=== PATIENT | female | born 1990 | race Caucasian/White ===

== ENCOUNTER 2017-02-04 17:46 | Emergency (ER) | payer MEDICAID ==
[~2017-02-04] VITALS: Ht 160 cm; Wt 71.4 kg
[2017-02-04 18:07] VITALS: Ht 160 cm; Wt 71.4 kg
[2017-02-04] MEDS ORDERED: ONDANSETRON (ODT) 4 MG TAB ODT STA (19:38)
[2017-02-04] MEDS ORDERED: DICYCLOMINE 10 MG CAP PO ONE (20:00)
[2017-02-04 20:06] LABS: BASOPHIL # 0.1 10^3/ul (0.0-0.1); BASOPHILS % 0.4 % (0.0-2.0); EOSINOPHILS # 0.1 10^3/ul (0.0-0.5); EOSINOPHILS % 0.7 % (0.0-7.0); HEMATOCRIT 39.8 % (37.0-47.0); HEMOGLOBIN 13.2 g/dl (12.0-16.0); LYMPHOCYTES # 2.7 10^3/ul (0.8-2.9); LYMPHOCYTES % 19.9 % (15.0-51.0); MEAN CORPUSCULAR HEMOGLOBIN 27.4 pg (29.0-33.0); MEAN CORPUSCULAR HGB CONC 33.2 g/dl (32.0-37.0); MEAN CORPUSCULAR VOLUME 82.7 fl (82.0-101.0); MEAN PLATELET VOLUME 11.3 fl (7.4-10.4); MONOCYTE # 1.1 10^3/ul (0.3-0.9); MONOCYTES % 8.3 % (0.0-11.0); NEUTROPHIL # 9.6 10^3/ul (1.6-7.5); NEUTROPHILS % 70.3 % (39.0-77.0); PLATELET COUNT 266 10^3/UL (140-415); RED BLOOD COUNT 4.81 10^6/ul (4.20-5.40); WHITE BLOOD COUNT 13.6 10^3/ul (4.8-10.8)
[2017-02-04 20:20] LABS: ALBUMIN 4.6 g/dl (3.3-4.9); ALBUMIN/GLOBULIN RATIO 1.15; BILIRUBIN,INDIRECT 0.1 mg/dl (0-1.1); BILIRUBIN,TOTAL 0.1 mg/dl (0.2-1.3); CALCIUM 9.2 mg/dl (8.4-10.2); CREATININE 0.51 mg/dl (0.44-1.00); POTASSIUM 3.8 mmol/L (3.5-5.1); TOTAL PROTEIN 8.6 g/dl (6.1-8.1)
[2017-02-04 20:33] LABS: ADD UMIC YES; UR ASCORBIC ACID NEGATIVE (NEGATIVE); UR BACTERIA FEW /HPF (NONE SEEN); UR BILIRUBIN (Dip) NEGATIVE (NEGATIVE); UR BLOOD (Dip) NEGATIVE (NEGATIVE); UR CLARITY SLIGHTLY CLOUDY (CLEAR); UR COLOR AMBER (YELLOW); UR GLUCOSE (Dip) NEGATIVE (NEGATIVE); UR KETONES (Dip) TRACE mg/dL (NEGATIVE); UR LEUKOCYTE ESTERASE (Dip) 1+ Leu/ul (NEGATIVE); UR MUCUS FEW /HPF (NONE SEEN); UR NITRITE (Dip) NEGATIVE (NEGATIVE); UR RBC 2 /HPF (0-5); UR SPECIFIC GRAVITY (Dip) 1.027 (1.003-1.030); UR SQUAMOUS EPITHELIAL CELL MODERATE /HPF (FEW); UR TOTAL PROTEIN (Dip) 1+ mg/dl (NEGATIVE); UR UROBILINOGEN (Dip) NEGATIVE (NEGATIVE)
--- NOTE | 2017-02-04 21:49 | RADRPT ---
PROCEDURE: US Abdomen Right Upper Quadrant. CLINICAL INDICATION: Abdominal pain TECHNIQUE: Multiple real-time longitudinal and transverse images were acquired of the patient's [facility] upper quadrant abdomen utilizing a curved array transducer. COMPARISON: None FINDINGS: Liver: The liver is enlarged with the sagittal diameter right lobe measuring 19.4 cm. The liver is d iffusely echogenic with no discrete focal lesion evident. There is antegrade flow of the main portal vein. Gallbladder: Appears unremarkable and no stones are identified. There is no pericholecystic fluid. Bile ducts: There is no significant intra or extrahepatic bile duct dilatation. No choledocholiths a re seen within the visualized portions. The common bile duct measures 2.8 mm in cross diameter. Pancreas: The visualized head and body of the pancreas appear unremarkable. Right adrenal : No mass is evident. Right kidney: Normal in echotexture andl in size. The right kidney measures 11.1 cm in length. No ma ss, pathological calcification, or hydronephrosis is evident. Peritoneum: There is no free intraperitoneal fluid IMPRESSION: 1. Hepatomegaly with diffusely increased echotexture which likely represents fatty infiltration but no focal lesion evident. Antegrade flow is seen in the main portal vein. 2. Normal appearing gallbladder without cholelithiasis or bile duct dilatation. 3. The visualized pancreas appears unremarkable. 4. The right kidney appears normal. Physician William Date Time Electronically viewed and signed by Physician William on 02/04/2017 21:49 /
[2017-02-04] MEDS ORDERED: DICY10CA60 PO (22:05)
[2017-02-04] MEDS ORDERED: ONDA4TAB14 PO (22:05)
[2017-02-04] MEDS ORDERED: CEPH-443 PO (22:18)
--- NOTE | 2017-02-05 00:02 | ERD ---
ER Documentation Chief Complaint Chief Complaint ap w/nausea & diarrhea x4 days HPI 26-year-old female patient with no significant past medical history presents to the ED complaining of abdominal pain that started intermittently for the past 2 days with some nausea but denies any vomiting. Reports that her last menstruation was on January 16, 2017. States that her abdominal pain is predominantly in the right upper quadrant region and she has had 3 episodes of nonmucoid nonbloody diarrhea. Denies any chest pain, shortness of breath, fever , chills, neck stiffness. Patient reports that the pain is worse with eating food. ROS All systems reviewed and are negative except as per history of present illness. Medications Home Meds Active Scripts Cephalexin* (Keflex*) 500 Mg Capsule, 500 MG PO QID for 7 Days, CAP Prov:MIGUEL TENA PA-C 02/04/17 Allergies Allergies: Coded Allergies: No Known Allergy (Unverified , 11/28/15) PMhx/Soc Medical and Surgical Hx: pt denies Medical Hx, pt denies Surgical Hx Physical Exam Vitals Vital Signs Date Time Temp Pulse Resp B/P Pulse Ox O2 Delivery O2 Flow Rate FiO2 02/04/17 18:07 98.0 101 20 119/76 98 Physical Exam Const: [id number], well-nourished. In no acute distress. Head: Atraumatic, normocephalic Eyes: Normal Conjunctiva without injection. No purulent discharge. ENT: Normal external ear, nose. Moist oropharynx without tonsillar exudates. Non -erythematous pharynx. Uvula midline. No drooling. No trismus. Neck: No cervical midline tenderness. Full range of motion. No meningismus. No cervical lymphadenopathy. No JVD. Resp: Clear to auscultation bilaterally. No wheezing, rhonchi, rales, or crackles. No accessory muscle use. No retractions. Cardio: Regular rate and rhythm. No murmurs, rubs or gallops. Abd: Soft, right upper quadrant tenderness, non distended. Normal bowel sounds. No palpable masses. No rebound tenderness. No guarding. Negative McBurney' s point. Negative psoas sign. Negative obturator sign. Skin: No petechiae or rashes Back: No midline tenderness. No CVA tenderness. Ext: No cyanosis, or edema. Neur: Awake and alert. Normal gait. Normal coordination. Psych: Normal Mood and Affect Result Diagram: 02/04/17195002/04/171950 Results 24 hrs Laboratory Tests Test 02/04/17 19:35 02/04/17 19:51 Urine Color HEIDI Urine Clarity SLIGHTLY CLOUDY Urine pH 6.0 Urine Specific [place] 1.027 Urine Ketones TRACEmg/dL Urine Nitrite NEGATIVEmg/dL Urine Bilirubin NEGATIVEmg/dL Urine Urobilinogen NEGATIVEmg/dL Urine Leukocyte Esterase 1+Ji/ul Urine Microscopic RBC 2/HPF Urine Microscopic WBC 12/HPF Urine Squamous Epithelial Cells MODERATE/HPF Urine Bacteria FEW/HPF Urine Mucus FEW/HPF Urine Hemoglobin NEGATIVEmg/dL Urine Glucose NEGATIVEmg/dL Urine Total Protein 1+mg/dl White Blood Count 13.610^3/ul Red Blood Count 4.8110^6/ul Hemoglobin 13.2g/dl Hematocrit 39.8% Mean Corpuscular Volume 82.7fl Mean Corpuscular Hemoglobin 27.4pg Mean Corpuscular Hemoglobin Concent 33.2g/dl Red Cell Distribution Width 13.0% Platelet Count 17810^3/UL Mean Platelet Volume 11.3fl Neutrophils % 70.3% Lymphocytes % 19.9% Monocytes % 8.3% Eosinophils % 0.7% Basophils % 0.4% Nucleated Red Blood Cells % 0.0/100WBC Neutrophils # 9.610^3/ul Lymphocytes # 2.710^3/ul Monocytes # 1.110^3/ul Eosinophils # 0.110^3/ul Basophils # 0.110^3/ul Nucleated Red Blood Cells # 0.010^3/ul Sodium Level 139mmol/L Potassium Level 3.8mmol/L Chloride Level 101mmol/L Carbon Dioxide Level 24mmol/L Anion Gap 18 Blood Urea Nitrogen 9mg/dl Creatinine 0.51mg/dl Glucose Level 105mg/dl Calcium Level 9.2mg/dl Total Bilirubin 0.1mg/dl Direct Bilirubin 0.00mg/dl Indirect Bilirubin 0.1mg/dl Aspartate Amino Transf (AST/SGOT) 69IU/L Alanine Aminotransferase (ALT/SGPT) 149IU/L Alkaline Phosphatase 154IU/L Total Protein 8.6g/dl Albumin 4.6g/dl Globulin 4.00g/dl Albumin/Globulin Ratio 1.15 Lipase 54U/L Current Medications Medications (Trade) Dose Ordered Sig/Ryan Route PRN Reason Start Time Stop Time Status Last Admin Dose Admin Dicyclomine HCl (Bentyl) 10 mg ONCE ONCE PO 02/04/17 20:00 02/04/17 20:01 DC 02/04/17 20:07 Ondansetron HCl (Zofran Odt) 4 mg ONCE STAT ODT 02/04/17 19:38 02/04/17 19:41 DC 02/04/17 20:07 Procedures/MDM 26-year-old female patient with no significant past medical history presents to the ED complaining of right upper quadrant abdominal pain and worse after eating and also has diarrhea. Patient is afebrile nontoxic appearing. Patient has normal vital signs. Patient was further worked up with CBC, CMP, lipase, UA , gallbladder ultrasound. Patient's pain and symptoms have improved after treatment with Bentyl, Zofran. CBC: No leukocytosis. No e/o of systemic infection. No e/o anemia. CMP: No e/o severe acidosis, alkalosis, renal failure, diabetic ketoacidosis, liver disease Lipase within normal limits. Urine: 1+ leukocyte esterase, no nitrites, no hematuria. Urine : Negative PROCEDURE: US Abdomen Right Upper Quadrant. CLINICAL INDICATION: Abdominal pain TECHNIQUE: Multiple real-time longitudinal and transverse images were acquired of the patient's right upper quadrant abdomen utilizing a curved array transducer. COMPARISON: None FINDINGS: Liver: The liver is enlarged with the sagittal diameter right lobe measuring 19.4 cm. The liver is diffusely echogenic with no discrete focal lesion evident. There is antegrade flow of the main portal vein. Gallbladder: Appears unremarkable and no stones are identified. There is no pericholecystic fluid. Bile ducts: There is no significant intra or extrahepatic bile duct dilatation. No choledocholiths are seen within the visualized portions. The common bile duct measures 2.8 mm in cross diameter. Pancreas: The visualized head and body of the pancreas appear unremarkable. Right adrenal : No mass is evident. Right kidney: Normal in echotexture andl in size. The right kidney measures 11.1 cm in length. No mass, pathological calcification, or hydronephrosis is evident. Peritoneum: There is no free intraperitoneal fluid IMPRESSION: 1. Hepatomegaly with diffusely increased echotexture which likely represents fatty infiltration but no focal lesion evident. Antegrade flow is seen in the main portal vein. 2. Normal appearing gallbladder without cholelithiasis or bile duct dilatation. 3. The visualized pancreas appears unremarkable. 4. The right kidney appears normal. Patient is noted to have a urinary tract infection. Patient also has a fatty liver and she was treated on healthy eating. Patient is appropriate for outpatient management. Low suspicion for ectopic , ovarian torsion, gastritis, GERD, peptic ulcer disease, cholecystitis, choledocholithiasis, cholangitis, pancreatitis, appendicitis, bowel obstruction, ileus, volvulus, nephrolithiasis, pyelonephritis, hepatitis, perforated viscus, diverticulitis, strangulated/incarcerated hernia, DKA, acute abdomen, mesenteric ischemia or other emergent conditions. 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 Healthy eating education provided to patient. Instructed patient to return to the ED sooner for any worsening symptoms. Patient's questions were answered. Patient understood and agreed with discharge plan. Patient discharged stable. Departure Diagnosis: Primary Impression: Flank pain Additional Impression: Right upper quadrant abdominal pain Condition: Stable Patient Instructions: Abdominal Pain, Non-Alcoholic Fatty Liver Disease (NAFLD) , Urinary Tract Infections in Women Referrals: COMMUNITY CLINICS YOU HAVE RECEIVED A MEDICAL SCREENING EXAM AND THE RESULTS INDICATE THAT YOU DO NOT HAVE A CONDITION THAT REQUIRES URGENT TREATMENT IN THE EMERGENCY DEPARTMENT. FURTHER EVALUATION AND TREATMENT OF YOUR CONDITION CAN WAIT UNTIL YOU ARE SEEN IN YOUR DOCTORS OFFICE WITHIN THE NEXT 1-2 DAYS. IT IS YOUR RESPONSIBILITY TO MAKE AN APPOINTMENT FOR FOLOW-UP CARE. IF YOU HAVE A PRIMARY DOCTOR --you should call your primary doctor and schedule an appointment IF YOU DO NOT HAVE A PRIMARY DOCTOR YOU CAN CALL OUR PHYSICIAN REFERRAL HOTLINE AT IF YOU CAN NOT AFFORD TO SEE A PHYSICIAN YOU CAN CHOSE FROM THE FOLLOWING [facility] CLINICS [facility] [address] [facility] [address] [facility]. [facility] [address] [facility] [address] [facility] [address] [facility]. [facility] [address] [facility]. [facility] YOU HAVE RECEIVED A MEDICAL SCREENING EXAM AND THE RESULTS INDICATE THAT YOU DO NOT HAVE A CONDITION THAT REQUIRES URGENT TREATMENT IN THE EMERGENCY DEPARTMENT. FURTHER EVALUATION AND TREATMENT OF YOUR CONDITION CAN WAIT UNTIL YOU ARE SEEN IN YOUR DOCTORS OFFICE WITHIN THE NEXT 1-2 DAYS. IT IS YOUR RESPONSIBILITY TO MAKE AN APPOINTMENT FOR FOLOW-UP CARE. IF YOU HAVE A PRIMARY DOCTOR --you should call your primary doctor and schedule and appointment IF YOU DO NOT HAVE A PRIMARY DOCTOR YOU CAN CALL OUR PHYSICIAN REFERRAL HOTLINE AT . IF YOU CAN NOT AFFORD TO SEE A PHYSICIAN YOU CAN CHOSE FROM THE FOLLOWING COUNTS INCLUDE 234 BEDS AT THE [facility] INSTITUTIONS: [facility] [address] [place] [address] [facility] [address] [place], [place] [id number] [place] [address] [address] [place] [address] [facility] URGENT CARE/SPECIALTIES Additional Instructions: Llame al doctor MAANA y juan alia RAHUL PARA DENTRO DE 2-3 MULLINS.Dgale a la secretaria que nosotros le instruimos hacer esta rahul.Avise o llame si vivar condicin se empeora antes de la rahul. Regresa aqui si peor o no mejor. MIGUEL TENA PA-C Feb 05, 2017 00:02
== END 2017-02-04 22:38 | disposition home or self-care (01) ==
LOC: FTE 17:46
DX: R10.11 Right upper quadrant pain (principal)
CPT/HCPCS: 76705; 80053; 81001; 83690; 85025; Z7502; Z7610

== ENCOUNTER 2018-10-21 20:12 | Emergency (ER) | payer MEDICAID ==
[~2018-10-21] VITALS: Ht 144.8 cm; Wt 72.7 kg
[~2018-10-21 20:12] MED LIST: CEPH-443 PO
[2018-10-21 20:17] VITALS: BP 119/61; PULSE 77; RESP 18; Ht 144.8 cm; Wt 72.7 kg
[2018-10-21] MEDS ORDERED: ACETAMINOPHEN 325 MG TAB PO ONE (20:30)
--- NOTE | 2018-10-22 00:06 | ERD ---
ER Documentation Chief Complaint Chief Complaint C/O LOWER ABDOMINAL AND PELVIC PAIN X4 DAYS HPI 28-year-old female presents emergency department complaining of intermittent pelvic pain for the past 5 days. She describes it as cramping sensation currently rated 6/10 severity. She is also had some vaginal bleeding. She denies any abdominal pain, fevers, chills, back pain, or other symptoms at this time. Her last menstrual cycle was reportedly September 11, 2018. No other symptoms reported at this time. ROS All systems reviewed and are negative except as per history of present illness. Medications Home Meds Active Scripts Cephalexin* (Keflex*) 500 Mg Capsule, 500 MG PO TID for 7 Days, CAP Prov:KRISETN KHAN PA-C 10/21/18 Cephalexin* (Keflex*) 500 Mg Capsule, 500 MG PO QID for 7 Days, CAP Prov:MIGUEL TENA PA-C 02/04/17 Allergies Allergies: Coded Allergies: No Known Allergy (Unverified , 11/28/15) PMhx/Soc Medical and Surgical Hx: pt denies Medical Hx, pt denies Surgical Hx Hx Alcohol Use: No Hx Substance Use: No Hx Tobacco Use: No Smoking Status: Never smoker FmHx Family History: No diabetes Physical Exam Vitals Vital Signs Date Temp Pulse Resp B/P (MAP) Pulse Ox O2 O2 Flow FiO2 Time Delivery Rate 10/21/18 98.0 23:03 10/21/18 98.6 77 18 119/61 99 20:17 (80) Physical Exam Const: No acute distress Head: Atraumatic Eyes: Normal Conjunctiva ENT: Normal External Ears, Nose and Mouth. Neck: Full range of motion. No meningismus. Resp: Clear to auscultation bilaterally Cardio: Regular rate and rhythm, no murmurs Abd: Soft, non tender, non distended. Normal bowel sounds. No rebound tenderness or guarding. No McBurney's point tenderness. Mild tenderness palpation of the suprapubic region bilaterally. Skin: No petechiae or rashes Back: No midline or flank tenderness Ext: No cyanosis, or edema Neur: Awake and alert Psych: Normal Mood and Affect Result Diagram: 10/21/18203610/21/182036 Results 24 hrs Laboratory Tests Test 10/21/18 20:37 8/6/19 20:47 10/21/18 21:47 White Blood Count 9.6 10^3/ul Red Blood Count 4.47 10^6/ul Hemoglobin 12.6 g/dl Hematocrit 38.4 % Mean Corpuscular Volume 85.9 fl Mean Corpuscular Hemoglobin 28.2 pg Mean Corpuscular 32.8 g/dl Hemoglobin Concent Red Cell Distribution Width 13.7 % Platelet Count 213 10^3/UL Mean Platelet Volume 11.5 fl Immature Granulocytes % 0.200 % Neutrophils % 58.4 % Lymphocytes % 33.6 % Monocytes % 6.5 % Eosinophils % 0.8 % Basophils % 0.5 % Nucleated Red Blood Cells % 0.0 /100WBC Immature Granulocytes # 0.020 10^3/ul Neutrophils # 5.6 10^3/ul Lymphocytes # 3.2 10^3/ul Monocytes # 0.6 10^3/ul Eosinophils # 0.1 10^3/ul Basophils # 0.1 10^3/ul Nucleated Red Blood Cells # 0.0 10^3/ul Urine Color YELLOW Urine Clarity SLIGHTLY CLOUDY Urine pH 5.0 Urine Specific [place] 1.030 Urine Ketones NEGATIVE mg/dL Urine Nitrite NEGATIVE mg/dL Urine Bilirubin NEGATIVE mg/dL Urine Urobilinogen NEGATIVE mg/dL Urine Leukocyte Esterase 2+ Ji/ul Urine Microscopic RBC 20 /HPF Urine Microscopic WBC 27 /HPF Urine Squamous Epithelial Cells FEW /HPF Urine Bacteria FEW /HPF Urine Mucus FEW /HPF Urine Hemoglobin 3+ mg/dL Urine Glucose NEGATIVE mg/dL Urine Total Protein NEGATIVE mg/dl Sodium Level 139 mmol/L Potassium Level 3.5 mmol/L Chloride Level 107 mmol/L Carbon Dioxide Level 20 mmol/L Anion Gap 12 Blood Urea Nitrogen 9 mg/dl Creatinine 0.51 mg/dl Est Glomerular Filtrat > 60 mL/min Rate mL/min Glucose Level 94 mg/dl Calcium Level 8.7 mg/dl POC Beta HCG, Qualitative POSITIVE Beta HCG, Quantitative 20108.0 mIU/ml Current Medications Medications Dose Sig/Ryan Start Time Status Last (Trade) Ordered Route PRN Stop Time Admin Dose Reason Admin 650 mg ONCE ONCE 10/21/18 DC 10/21/18 Acetaminophen PO 20:30 10/21/18 20:38 (Tylenol 20:31 Tab) [place] [id number] Radiology Main Line: [phone] DIAGNOSTIC IMAGING REPORT Patient: SOM SANCHEZ : 1990 Age: 28 Sex: F MR #: [id number] [facility] #: [id number] DOS: 10/21/182028 Ordering MD: KRISTEN KHAN PA-C Location: [facility] Room/Bed: PROCEDURE: US Pelvis. CLINICAL INDICATION: Vaginal bleeding TECHNIQUE: Multiple sonographic images of the pelvis were obtained utilizing a transabdominal and endovaginal technique. The images were reviewed on a PACS workstation. COMPARISON: None. FINDINGS: The uterus is visualized and measures 9.0 x 5.8 x 6.7 cm. The endometrial echo complex is thickened and measures 2.0 cm. A 1.1 x 0.6 x 1.1 cm hypo echogenicity is noted within the endometrial canal. There is no evidence for free fluid. The right ovary has a normal echotexture and measures 3.7 x 2.2 x 2.3 cm . Positive flow is noted. Left ovary is not visualized. No significant free fluid. IMPRESSION: 1. Thickened endometrial stripe. A 1.1 x 0.6 x 1.1 cm hypo echogenicity is noted within the endometrial canal which may represent blood clot. Possible gestational sac is not excluded in the setting of positive Beta HCG. 2. The right ovary is unremarkable. The left ovary is not visualized. No significant free fluid. No evidence of right ovarian torsion. RPTAT: AARR Physician Nimco Date Time Electronically viewed and signed by Physician Nimco on 10/21/2018 21:44 JL/ CC: KRISTEN KHAN PA-C [id number] Procedures/MDM 28-year-old female presents the emergency department complaining of suprapubic pain. Patient's test was incidentally positive. Patient also had signs of uncomplicated urinary tract infection. CBC showed no evidence of significant leukocytosis or anemia. I doubt ectopic . I doubt: Nephritis, acute surgical abdomen, PID, ovarian torsion, tubo-ovarian abscess, or other emergent process. Patient will be discharged home with instructions to follow-up with her ACCESS CONTROL SPECIALIST physician within the next 24 to 48 hours and return here immediately for any new or worsening or concerning symptoms. Patient was in agreement with the diagnosis, plan, need for follow-up, return precautions. Departure Diagnosis: Primary Impression: UTI (urinary tract infection) Condition: Fair Patient Instructions: Understanding Urinary Tract Infections (UTIs) Additional Instructions: Llame al doctor MAANA y juan alia RAHUL PARA DENTRO DE 1-2 MULLINS.Dgale a la secretaria que nosotros le instruimos hacer esta rahul.Avise o llame si vivar condicin se empeora antes de la rahul. Regresa aqui si peor o no mejor. KRISTEN KHAN PA-C Oct 22, 2018 00:06
== END 2018-10-21 23:03 | disposition home or self-care (01) ==
LOC: FTE 20:12
DX: N39.0 Urinary tract infection, site not specified (principal)
CPT/HCPCS: 36415; 76830; 76856; 80048; 81001; 81025; 84702; 85025; Z7502; Z7610